=== PATIENT | female | born 1975 | race African-American/Black ===

== ENCOUNTER 2023-04-24 20:45 | Emergency (ER) | payer MEDICAID, OTHER ==
[~2023-04-24] VITALS: Ht 162.6 cm; Wt 81.9 kg
[2023-04-24 20:57] VITALS: TEMP 98.6; O2SAT 98
[2023-04-24] MEDS ORDERED: IBUPROFEN 600MG TABLET PO ONE (22:15)
[2023-04-24 23:06] VITALS: BP 127/85; PULSE 91; RESP 16
[2023-04-25] MEDS ORDERED: IBUP-2029 MT (00:05)
[2023-04-25] MEDS ORDERED: T3 PO (00:05)
[2023-04-25] MEDS ORDERED: AMOX1TAB16 MT (00:05)
== END 2023-04-25 00:10 | disposition home or self-care (01) ==
LOC: ER 20:45
DX: S02.85XA Fracture of orbit, unspecified, initial encounter for closed fracture (principal); F12.10 Cannabis abuse, uncomplicated; Z98.51 Tubal ligation status; X58.XXXA Exposure to other specified factors, initial encounter; Y93.89 Activity, other specified; Y92.89 Other specified places as the place of occurrence of the external cause; Y99.8 Other external cause status
CPT/HCPCS: 70486; 99284

== ENCOUNTER 2023-08-12 12:16 | Emergency (ER) | payer MEDICAID ==
[~2023-08-12] VITALS: Ht 170.2 cm; Wt 91.0 kg
[~2023-08-12 12:16] MED LIST: AMOX1TAB16 MT; IBUP-2029 MT; T3 PO
[2023-08-12 12:29] VITALS: TEMP 97.8; O2SAT 98
[2023-08-12] MEDS ORDERED: IBUPROFEN 600MG TABLET PO STA (13:40)
[2023-08-12] MEDS ORDERED: IBUPROFEN 600MG TABLET PO NR (16:45)
[2023-08-12 17:01] VITALS: BP 113/73; PULSE 83; RESP 18
== END 2023-08-12 18:05 | disposition home or self-care (01) ==
LOC: ER 12:17
DX: J06.9 Acute upper respiratory infection, unspecified (principal); F12.10 Cannabis abuse, uncomplicated; Z20.822 Contact with and (suspected) exposure to COVID-19; Z98.51 Tubal ligation status
CPT/HCPCS: 99283; 87426; 87804 ×2; C9803